=== PATIENT | female | born 1985 | race Two or more races ===

== ENCOUNTER 2018-10-22 21:27 | Emergency (ER) | payer SELFPAY ==
[~2018-10-22] VITALS: Ht 152.4 cm; Wt 72.6 kg
--- NOTE | 2018-10-22 21:44 | NUR ---
BETH C/O "IM HAVING BACK PAIN WHILE URINATING, HAVING FREQUENCY AND URGENCY" -SOB -N/V AOX4. AMBULATORY. -DIZZY
[2018-10-22 23:02] LABS: APPEARANCE,URINE CLOUDY (CLEAR); BILIRUBIN,URINE NEGATIVE (NEGATIVE); BLOOD, URINE 1+ Ery/uL (NEGATIVE); COLOR,URINE YELLOW (YELLOW); KETONES,URINE NEGATIVE (NEGATIVE); LEUKOCYTE ESTERASE ,URINE 3+ (NEGATIVE); NITRITE, URINE NEGATIVE (NEGATIVE); PROTEIN,URINE TRACE mg/dl (NEGATIVE); UGLUCOSE NEGATIVE (NEGATIVE)
[2018-10-22 23:08] LABS: BACTERIA,URINE Moderate /HPF (None Seen); SQUAMOUS EPITHELIAL CELL,UR Moderate /HPF (None Seen); WBC,URINE TOO NUMEROUS TO COUN /HPF (0-3)
[2018-10-22] MEDS ORDERED: CEFTRIAXONE 1 G VIAL ONE (23:26)
[2018-10-22] MEDS ORDERED: LIDOCAINE 1% INJ 50 ML MDV IJ ONE (23:28)
[2018-10-22] MEDS ORDERED: CEFTRIAXONE 1 G VIAL IM ONE (23:30)
[2018-10-22] MEDS ORDERED: LEVOFLOXACIN (500MG) 500 MG TABLET PO ONE (23:30)
[2018-10-22 23:41] VITALS: BP 118/78
== END 2018-10-22 23:41 | disposition home or self-care (01) ==
LOC: ER 21:32
DX: N12 Tubulo-interstitial nephritis, not specified as acute or chronic (principal); Z98.890 Other specified postprocedural states; Z95.818 Presence of other cardiac implants and grafts
CPT/HCPCS: 71045; 81001; 84703; 87086; 96372; 99284; J0696; J3490; 81000-TC; 87186-TC

== ENCOUNTER 2020-08-02 00:07 | Emergency (ER) | payer OTHER ==
[~2020-08-02] VITALS: Ht 162.6 cm; Wt 71.2 kg
--- NOTE | 2020-08-02 00:12 | NUR ---
PT IVAN FROM HOME FOR OD ON ATIVAN LIQUID MED. UPON SPEAKING TO PT, ABLE TO STATE NAME. WHEN ASKED IF SHE TOOK THE ATIVAN TO HURT HERSELF OR FOR ANXIETY, SHE STATED "TO HURT MYSELF." AWARE. VSS. RAC 20G IV LINE PLACED, BLOOD WORK COLLECTED, SENT TO LAB.
[2020-08-02 01:01] LABS: BASOPHILS % (AUTO) 0.7 % (0.0-2.0); EOSINOPHILS % (AUTO) 2.1 % (0.0-6.0); HEMATOCRIT 40 % (33-45); HEMOGLOBIN 13.3 g/dL (11.5-14.8); LYMPHOCYTES # (AUTO) 2.6 /CMM (0.8-4.8); LYMPHOCYTES % (AUTO) 39.5 % (20.0-44.0); MEAN CORPUSCULAR HGB CONC 33 g/dl (31.0-36.0); MEAN CORPUSCULAR VOLUME 90 fL (82-100); MONOCYTES # (AUTO) 0.4 /CMM (0.1-1.30); MONOCYTES % (AUTO) 6.1 % (2.0-12.0); NEUTROPHILS # (AUTO) 3.4 /CMM (1.8-8.9); NEUTROPHILS % (AUTO) 51.6 % (43.0-81.0); PLATELET COUNT (AUTO) 367 /CMM (150-450); RED BLOOD CELL COUNT(AUTO) 4.47 MIL/uL (4.0-5.2); WHITE BLOOD COUNT (AUTO) 6.7 K/uL (4.3-11.0)
[2020-08-02 01:25] LABS: ALANINE AMINOTRANSFERASE 29 U/L (12-78); ALCOHOL, BLOOD < 3 mg/dL (0-0); ALKALINE PHOSPHATASE 49 U/L (46-116); ASPARTATE AMINOTRANSFERASE 23 U/L (15-37); BILIRUBIN,DIRECT 0.2 mg/dL (0.0-0.2); BILIRUBIN,TOTAL 0.4 mg/dL (0.2-1.0); CALCIUM, SERUM 9.2 mg/dL (8.5-10.1); CARBON DIOXIDE 29 mmol/L (21-32); CHLORIDE 104 mmol/L (98-107); CREATININE 0.6 mg/dL (0.6-1.3); GLUCOSE 85 mg/dL (74-106); POTASSIUM 3.8 mmol/L (3.5-5.1); SODIUM SERUM 141 mmol/L (136-145); TOTAL PROTEIN, SERUM 8.1 g/dL (6.4-8.2); UREA NITROGEN, BLOOD 5 mg/dL (7-18)
[2020-08-02 01:34] LABS: ACETAMINOPHEN < 2 ug/ml (10-30)
[2020-08-02 02:26] LABS: B-TYPE NATRIURETIC PEPTIDE 27 PG/ML (0-125)
--- NOTE | 2020-08-02 04:18 | NUR ---
PT REMAINS ASLEEP, VSS.
--- NOTE | 2020-08-02 06:58 | NUR ---
PT AWAKE, AAOX4, DENIES SI AND HI. REQUESTING TO LEAVE. AWARE.
--- NOTE | 2020-08-02 06:58 | NUR ---
PT DECLINED COVID SWAB AND URINE SAMPLE. AWARE.
--- NOTE | 2020-08-02 07:46 | NUR ---
patient provided urine sample. sent sample to the lab
[2020-08-02 08:09] LABS: BILIRUBIN,URINE NEGATIVE (NEGATIVE); COLOR,URINE YELLOW (YELLOW); LEUKOCYTE ESTERASE ,URINE NEGATIVE (NEGATIVE); NITRITE, URINE NEGATIVE (NEGATIVE); PROTEIN,URINE NEGATIVE (NEGATIVE); UGLUCOSE NEGATIVE (NEGATIVE); UROBILINOGEN,URINE 0.2 EU/dL (0.2)
[2020-08-02 08:19] LABS: BACTERIA,URINE None seen /HPF (None Seen); RBC,URINE NONE SEEN /HPF (0-2); SQUAMOUS EPITHELIAL CELL,UR Few /HPF (None Seen); WBC,URINE 0-2 /HPF (0-3)
--- NOTE | 2020-08-02 09:25 | NUR ---
RAPID COVID SWAB DONE AND SENT TO LAB
--- NOTE | 2020-08-02 09:26 | NUR ---
patient agreed to give information to Danya. made admitting aware
--- NOTE | 2020-08-02 09:31 | NUR ---
PATIENT STILL GROGGY, NOT ABLE TO SPEAK CLEARLY. WILL MONITOR CLOSELY UNTIL ABLE TO SPEAK WITH CRISIS FLEXIBLE NANNY
--- NOTE | 2020-08-02 10:11 | NUR ---
LAB CALLED PT COVID RESULT NEGATIVE (-)
--- NOTE | 2020-08-02 10:23 | NUR ---
Social Service Consult: SW consult request by ER staff for a 34 year old non female. SW met with pt at ER bed 10 with RN (Amol) at 1005am to assist with patient. SW is unable to assess due to unresponsive and pt is not interviewable. SW spoke to RN (Amol) to contact social worker clinical once the patient is ready to do an assessment. Plan: SW will follow up with ER with the pt current condition for an assessment.
--- NOTE | 2020-08-02 11:40 | NUR ---
CALLED ART [phone] NO VM CALLED [phone]. ETA 20
--- NOTE | 2020-08-02 11:47 | NUR ---
PUMP HOUSE OPERATOR COMING DOWN.
--- NOTE | 2020-08-02 12:36 | NUR ---
OFFERED FOOD TRAY, REFUSED. PLACED FOOD TRAY AT BEDSIDE
--- NOTE | 2020-08-02 12:45 | NUR ---
Social Service Consult: SW consult request by ER staff for a 34 year old non female. SW met with pt at ER bed 10 with RN (Amol) at 1230pm to assist with patient. SW is unable to interview due to behavior issues. Pt tested positive for (cannabinoids, cocaine, opiates). SW spoke to RN (Amol) to contact social work job titles once the patient is ready to do an assessment. Plan: SW will follow up with the patient is agreeable to participate in interview and assessment.
--- NOTE | 2020-08-02 14:12 | NUR ---
PATIENT INBED ASLEEP, EASILY AROUSABLE BY VOICE. NOTED GROGGY AND GOES BACK TO SLEEP AFTER SPOKEN TO. HOOKED TO MONITOR. VSS. WILL CONTINUE TO MONITOR ACCORDINGLY. SITTER AT BEDSIDE
--- NOTE | 2020-08-02 17:16 | NUR ---
OFFERED DINNER TRAY, REFUSED. PLACED TRAY AT BEDSIDE
--- NOTE | 2020-08-02 19:27 | NUR ---
CALLED JORDI [facility] ETA 60MINS
--- NOTE | 2020-08-02 19:47 | NUR ---
REPORT GIVEMN TO FELIPE MORALES FOR ABBIE
--- NOTE | 2020-08-02 20:43 | NUR ---
CRISIS TEACHING AIDE PINKY AT BEDSIDE
--- NOTE | 2020-08-02 21:21 | NUR ---
Patient discharged to home in stable condition. Written and verbal after care instructions given. Patient verbalizes understanding of instruction. Pt denies SI and HI. Pt ambulated out of E.D. vss.
[2020-08-02 21:22] VITALS: BP 111/68
== END 2020-08-02 21:22 | disposition home or self-care (01) ==
LOC: ER 00:07
DX: T42.4X1A Poisoning by benzodiazepines, accidental (unintentional), initial encounter (principal); R40.0 Somnolence; Y92.89 Other specified places as the place of occurrence of the external cause; R94.31 Abnormal electrocardiogram [ECG] [EKG]; Z20.822 Contact with and (suspected) exposure to COVID-19; R91.8 Other nonspecific abnormal finding of lung field; I51.9 Heart disease, unspecified
CPT/HCPCS: 36415; 71045; 80048; 80076; 80299; 80307; 80320; 81001; 83880; 84484; 84702; 85025; 87426; 93005; 99285; C9803; G0480